=== PATIENT | male | born 1995 | race Caucasian/White ===

== ENCOUNTER 2024-05-28 16:25 | Inpatient (IN) | payer OTHER ==
[2024-05-28 17:59] LABS: HEMATOCRIT 43.5 % (35.4-49); HEMOGLOBIN 14.5 G/dL (11.7-16.9); MCH 30.1 pg (25.7-33.7); MCHC 33.4 g/dl (32.0-35.9); MEAN PLT VOLUME 11.1 fl (7.5-11.1); RBC 4.83 10^6/uL (4.00-5.60); RDW 13.4 % (11.9-15.9); WHITE BLOOD COUNT 12.6 10^3/uL (4.0-10.8)
[2024-05-28 18:11] LABS: ALBUMIN 4.9 g/dl (3.4-5.0); ALK PHOS 48 U/L (45-117); ANION GAP 13 mmol/L (4-13); BILIRUBIN,TOTAL 0.6 mg/dl (0.2-1); CALCIUM 9.7 mg/dl (8.5-10.1); CHLORIDE 102 mmol/L (98-107); CO2 22 mmol/L (21-32); GLUCOSE,RANDOM 86 mg/dl (74-106); SGOT/AST 14 U/L (15-37); SGPT/ALT 15 U/L (7-52); SODIUM 137 mmol/L (136-145); TOT PROT 7.7 g/dl (6.4-8.2)
[2024-05-28 19:06] LABS: PLATELET ESTIMATE ADEQUATE
[2024-05-28] MEDS ORDERED: ACETAMINOPHEN INJECTION 100 ML ONE (20:35)
[2024-05-28] MEDS: ACETAMINOPHEN 1000 MG/100 ML BAG IVPB ONE (20:41)
[2024-05-28] MEDS ORDERED: PIPERACILLIN/TAZOBACTAM 3.375 GM VIAL IVPB ONE (22:03)
[2024-05-28] MEDS: PIPERACILLIN/TAZOB 3.375 GM 3.375 GM in DEXTROSE 5%-WATER - 50 ML IVPB ONE (22:08)
[2024-05-28 23:33] LABS: INR 1.12 (0.83-1.09); PROTHROMBIN TIME (PATIENT) 12.7 SEC (9.7-13.0)
[2024-05-28 23:50] VITALS: BMI 25.9
[2024-05-29] MEDS: DEXTROSE 5%-0.45% SALINE 1,000 ML IV SCH (00:08)
[2024-05-29] MEDS: ACETAMINOPHEN 1000 MG/100 ML BAG IVPB PRN (03:36)
[2024-05-29 08:19] LABS: CALCIUM 9.1 mg/dl (8.5-10.1); CREATININE 1.1 mg/dl (0.6-1.3); POTASSIUM 4.2 mmol/L (3.5-5.1)
[2024-05-29 09:25] LABS: BASO % 0.2 % (0-2.0); HEMOGLOBIN 13.7 GM/dL (11.7-16.9); WHITE BLOOD COUNT 10.3 K/mm3 (4.0-10.0)
[2024-05-29 09:28] LABS: EOS % 0.6 % (0-4.5); HEMATOCRIT 40.1 % (35.4-49); LYMPH % 15.5 % (8-40); MCH 30.3 pg (25.7-33.7); MCHC 34.2 g/dl (32.0-35.9); MEAN CELL VOLUME 88.5 fl (80-96); MEAN PLT VOLUME 10.7 fl (7.5-11.1); MONO % 10.3 % (3.8-10.2); NEUT % 73.4 % (42.8-82.8); PLATELET COUNT 176 10^3/uL (134-434); RBC 4.53 M/mm3 (4.00-5.60); RDW 13.2 % (11.9-15.9)
[2024-05-29] MEDS: PIPERACILLIN/TAZOB 3.375 GM 3.375 GM in DEXTROSE 5%-WATER - 50 ML IVPB SCH ×3 (09:42→19:40)
[2024-05-29] MEDS ORDERED: MIDAZOLAM HCL 2 MG/2 ML SINGLE DOSE VIAL ONE (17:11)
[2024-05-29] MEDS ORDERED: PROPOFOL 20 ML ONE (17:11)
[2024-05-29] MEDS ORDERED: SEVOFLURANE 250 ML BTL ONE (17:11)
[2024-05-29] MEDS ORDERED: LIDOCAINE HCL 2% 100 MG/5 ML DISP.SYRIN ONE (17:12)
[2024-05-29] MEDS ORDERED: DEXAMETHASONE SOD PHOSPHATE 4 MG/1 ML VIAL ONE (17:12)
[2024-05-29] MEDS ORDERED: ONDANSETRON 4 MG/2 ML VIAL ONE (17:12)
[2024-05-29] MEDS ORDERED: ceFAZolin SODIUM 1 GM VIAL ONE (17:37)
[2024-05-29] MEDS ORDERED: KETOROLAC TROMETHAMINE 30 MG/1 ML VIAL ONE (17:38)
[2024-05-29] MEDS ORDERED: PIPERACILLIN/TAZOBACTAM 3.375 GM VIAL IVPB ONE (17:39)
[2024-05-29] MEDS ORDERED: oxyCODONE HCL 5 MG TABLET PO PRN ×2 (18:07)
[2024-05-29] MEDS ORDERED: ONDANSETRON 4 MG/2 ML VIAL IVPUSH PRN (18:07)
[2024-05-29] MEDS ORDERED: DOCUSATE SODIUM 100 MG CAPSULE (FP) PO PRN (18:08)
[2024-05-29] MEDS ORDERED: ACETAMINOPHEN INJECTION 100 ML ONE (18:12)
[2024-05-29] MEDS ORDERED: FENTANYL CITRATE/PF 50 MCG/ML VIAL ONE ×2 (18:13→18:40)
[2024-05-29] MEDS ORDERED: oxyCODONE HCL 5 MG TABLET ONE (18:40)
[2024-05-29] MEDS: oxyCODONE HCL 5 MG TABLET PO PRN (18:54)
[2024-05-29] MEDS: LACTATED RINGERS SOLUTION 1,000 ML IV SCH (19:34)
[2024-05-29 19:57] VITALS: RESP 18
[2024-05-30 08:36] LABS: CALCIUM 9.1 mg/dl (8.5-10.1); CREATININE 1.1 mg/dl (0.6-1.3); POTASSIUM 4.2 mmol/L (3.5-5.1)
[2024-05-30 09:40] LABS: BASO % 0.1 % (0-2.0); EOS % 0.1 % (0-4.5); HEMATOCRIT 42.1 % (35.4-49); HEMOGLOBIN 13.8 GM/dL (11.7-16.9); MCH 29.4 pg (25.7-33.7); MCHC 32.8 g/dl (32.0-35.9); MEAN CELL VOLUME 89.8 fl (80-96); MEAN PLT VOLUME 10.6 fl (7.5-11.1); MONO % 7.9 % (3.8-10.2); NEUT % 75.9 % (42.8-82.8); PLATELET COUNT 213 10^3/uL (134-434); RBC 4.69 M/mm3 (4.00-5.60); RDW 13.1 % (11.9-15.9); WHITE BLOOD COUNT 8.6 K/mm3 (4.0-10.0)
[2024-05-30] MEDS: PSYLLIUM 5.85 GM PACKET PO SCH (10:53)
[2024-05-30 12:59] VITALS: BP 109/65; PULSE 63; TEMP 98.4
== END 2024-05-30 13:24 | disposition home or self-care (01) | DRG 346 ==
LOC: FER 16:25 → FM/S 22:20 → UNDOADMIN 22:32 → FM/S 22:32
PROVIDERS: ADMIT Internal Medicine
PROC: 0D9P0ZZ Drainage of Rectum, Open Approach (ICD-10-PCS; principal; 2024-05-29 17:38)
DX: K61.1 Rectal abscess (principal); K64.8 Other hemorrhoids
CPT/HCPCS: 36415; 72193-TC; 80048; 80053; 81003; 85025; 85027; 85610; 86850; 86900; 86901; 87040; 87070; 87077; 87086; 87186; 87205; 94760; 99285-25; J0131; Q9967